=== PATIENT | female | born 2000 | race Caucasian/White ===

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

== ENCOUNTER 2023-12-28 08:54 | Outpatient (CLI) | payer MEDICAID ==
[~2023-12-28 08:54] MED LIST changes: -NAPR-56 PO; +ONDA8TAB6 PO; +PANT20TA2 PO
== END 2023-12-28 23:59 | disposition home or self-care (01) ==
LOC: US 08:54
PROVIDERS: ATTEND Student in an Organized Health Care Education/Training Program
DX: K76.0 Fatty (change of) liver, not elsewhere classified (principal); K80.20 Calculus of gallbladder without cholecystitis without obstruction; R11.10 Vomiting, unspecified
CPT/HCPCS: 76700